=== PATIENT | female | born 1955 | race Caucasian/White ===

== ENCOUNTER → 2016-10-13 | Outpatient (CLI) | payer OTHER ==
--- NOTE | 2016-10-13 13:37 | EST ---
DATE OF SERVICE: 10/13/2016 TYPE OF REPORT: MOHAN EXERCISE STRESS TEST INDICATION: Murmur. BASELINE HEART RATE: 63 BASELINE BLOOD PRESSURE: 123/85 MAXIMUM HEART RATE: 143 MAXIMUM BLOOD PRESSURE: 188/58 85% MPHR: 136 100% MPHR: 160 METS: 7.3 MAXIMUM STAGE REACHED: II TOTAL EXERCISE TIME: 6:00 Baseline EKG revealed sinus mechanism, isolated PVC's. Patient walked for 6 minutes, achieved a maximum heart rate of 143 beats per minute, developed fatigue and shortness of breath and, therefore, stress test was stopped. Her heart rate was more than 85% of predicted maximum. There was a slot of artifact on this EKG. However, there is no evidence of any ST-segment changes to indicate ischemia. Patient did not have any angina. FINAL IMPRESSION: 1. Limited exercise capacity with a negative stress test by EKG criteria. 2. There is a lot of baseline artifact on the EKG. 3. There was no angina or any significant arrhythmia. YASIR
--- NOTE | 2016-10-14 11:02 | ECHOF ---
Referral Reason:I49.3 ventricular premature depolarizastion MEASUREMENTS -------- HEIGHT: 165.1 cm WEIGHT: 111.6 kg BP: IVSd: 1.3 cm (0.6 - 1.1) LVIDd: 3.9 cm (3.9 - 5.3) LVPWd: 1.4 cm (0.6 - 1.1) IVSs: 1.5 cm LVIDs: 3.3 cm LVPWs: 1.3 cm LA Diam: 4.1 cm (2.7 - 3.8) LAESV Index (A-L): 24.23 ml/m Ao Diam: 3.2 cm (2.0 - 3.7) AV Cusp: 2.1 cm (1.5 - 2.6) LA Diam: 5.5 cm (2.7 - 3.8) MV EXCURSION: 12.885 mm (> 18.000) MV EF SLOPE: 48 mm/s (70 - 150) EPSS: 1.1 cm MV E Wilber: 0.52 m/s MV DecT: 294 ms MV A Wilber: 0.85 m/s MV E/A Ratio: 0.61 RAP: 5.00 mmHg RVSP: 11.51 mmHg FINDINGS -------- Sinus rhythm. This was a technically good study. Morbid Obesity There is mild concentric left ventricular hypertrophy. Overall left ventricular systolic function is normal with, an EF between 55 - 60 %. The right ventricle is normal in size. Normal LA size by volume 22+/-6 ml/m2. The right atrial size is normal. The aortic valve is trileaflet, and appears structurally normal. No aortic stenosis or regurgitation. Mild mitral regurgitation is present. Mild tricuspid regurgitation present. There is no evidence of pulmonary hypertension. The right ventricular systolic pressure, as measured by Doppler, is 11.51mmHg. There is no pulmonic regurgitation present. The aortic root size is normal. Echo free space may represent effusion or a pericardial fat pad. CONCLUSIONS -------- 1. There is mild concentric left ventricular hypertrophy. 2. Overall left ventricular systolic function is normal with, an EF between 55 - 60 %. 3. Mild mitral regurgitation is present. 4. Mild tricuspid regurgitation present. 5. There is no evidence of pulmonary hypertension. 6. The right ventricular systolic pressure, as measured by Doppler, is 11.51mmHg. [employer] CASH CLERK: Tash Tyler RDCS
== END | disposition home or self-care (01) ==
LOC: RADNMMAIN 10:47
PROVIDERS: ATTEND Internal Medicine
DX: I49.3 Ventricular premature depolarization (principal)
CPT/HCPCS: 93017; 93306

== ENCOUNTER → 2016-10-13 | Outpatient (CLI) | payer OTHER ==
--- NOTE | 2016-10-14 12:22 | MM ---
Reason for exam: screening (asymptomatic). Last mammogram was performed 1 year and 6 months ago. History: Patient is postmenopausal. Physical Findings: A clinical breast exam by your physician is recommended on an annual basis and results should be correlated with mammographic findings. MG 3D Screening Mammo W/Cad Bilateral CC and MLO view(s) were taken. XCCL view(s) were taken of the left breast. Prior study comparison: April 23, 2015, bilateral MG 3d screening mammo w/cad. January 01, 2014, bilateral MG screening mammo w CAD. December 29, 2012, mammogram, performed at [facility]. The breast tissue is almost entirely fat. Benign calcifications bilaterally. No significant changes when compared with prior studies. ASSESSMENT: Benign, BI-RAD 2 RECOMMENDATION: Routine screening mammogram of both breasts in 1 year.
== END | disposition home or self-care (01) ==
LOC: RADMAMWWP 10:16
PROVIDERS: ATTEND Internal Medicine
DX: Z12.31 Encounter for screening mammogram for malignant neoplasm of breast (principal)
CPT/HCPCS: 77063; G0202; 93017; 93306

== ENCOUNTER → 2019-04-07 | Outpatient (CLI) | payer OTHER ==
[2019-04-07 14:36] VITALS: BP 151/79; PULSE 62; RESP 18; TEMP 98.6
--- NOTE | 2019-04-07 15:00 | P.GSHP ---
History of Present Illness H&P Date: 04/07/19 Chief Complaint: abnormal left breast ultrasound Glaina is a 63-year-old white female who presents for breast evaluation. She was seen in consultation for Dr. José Boogie related to mammographic abnormality in the right breast. She underwent bilateral mammogram on . This revealed an area of concern in the right breast for which ultrasound was recommended. It was a 4 mm mass. The patient had an ultrasound performed which revealed a 0.3 x 0.4 cm mass for which ultrasound-guided core biopsy was recommended. Caring does not feel any new lumps masses or nodules in her breast. She is not complaining of any nipple discharge or changes. No history of recent trauma or infection in the breast. She is not complaining of pain in her breast. Caffeine: 5 cups of tea/day nicotine: none chocolate: none Family History: none Hormonal History: menarche: 12 G0 menopause: 53 BCP: none hormones: none Surgical history: 1. bone spurs bilateral heels 2. bilateral; carpel tunnel 3. 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 85 pounds Medical history: Negative Social history: Smoke: Negative alcohol: Negative Drugs: Negative - Constitutional Constitutional: Denies chills, Denies fever - EENT Eyes: denies blurred vision, denies pain Ears: deny: decreased hearing, tinnitus Ears, nose, mouth and throat: Denies headache, Denies sore throat - Breasts Breasts: bilateral: as per HPI - Cardiovascular Cardiovascular: Denies chest pain, Denies shortness of breath - Respiratory Respiratory: Denies cough, Denies 7 - Gastrointestinal Gastrointestinal: Denies abdominal pain, Denies diarrhea, Denies nausea, Denies vomiting - Genitourinary (Female) Genitourinary: Denies dysuria, Denies hematuria - Menstruation Menstruation: Reports postmenopausal - Musculoskeletal Musculoskeletal: Denies myalgias - Integumentary Integumentary: Denies pruritus, Denies rash - Neurological Neurological: Denies numbness, Denies weakness - Psychiatric Psychiatric: Denies anxiety, Denies depression - Endocrine Endocrine: Denies fatigue, Denies weight change - Hematologic/Lymphatic Comment: none - Allergic/Immunologic Allergic/Immunologic: Reports as per HPI Past Medical History History of Any Multi-Drug Resistant Organisms: None Reported Smoking Status: Never smoker Medications and Allergies Home Medications Medication Instructions Recorded Confirmed Type Furosemide [Lasix] 40 mg PO DAILY 04/04/19 04/07/19 History Sertraline [Zoloft] 50 mg PO DAILY 04/04/19 04/07/19 History Allergies Allergy/AdvReac Type Severity Reaction Status Date / Time cefuroxime [From Ceftin] Allergy Unknown Verified 04/07/19 14:36 penicillin V [From Pen-Vee K] Allergy Unknown Verified 04/07/19 14:36 Surgical - Exam Vital Signs Temp Pulse Resp BP Pulse Ox 98.6 F 62 18 151/79 96 04/07/19 14:33 04/07/19 14:33 04/07/19 14:33 04/07/19 14:33 04/07/19 14:33 BMI 37.6 - General obese - Eyes normal ocular movement - ENT normal pinna, no hearing loss, no congestion - Neck no masses, trachea midline, no lymphadectomy - Respiratory normal expansion, normal respiratory effort, clear to percussion, clear to auscultation - Cardiovascular Rhythm: regular Heart Sounds: normal: S1, S2 - Abdomen Abdomen: soft, non tender, no guarding, no rigid, no rebound - Integumentary normal turgor - Neurologic no disoriented, no combative - Musculoskeletal normal gait, normal posture - Psychiatric oriented to time, oriented to person, oriented to place, speech is normal, memory intact breast exam: inspection: BRA 50C ptosis grade 3 no skin changes of concern, no nipple inversion Palpation: right breast: Multi-positional exam no dominant masses or nodules of concern, fibrocystic changes Right axilla: No adenopathy of concern in left breast: Multi-positional exam no dominant masses or nodules of concern, fibrocystic changes Left axilla: No adenopathy of concern Results mammogram and ultrasound results reviewed Assessment and Plan Assessment: Impression: 1. Mammogram and ultrasound area of concern right breast 2. Fibrocystic breast changes 3. BMI 37.6 Plan: 1. ultrasound core biopsy of the right breast 2. follow up after core biopsy CC: Dr. Flood encounter 25 minutes, > 50% of time in planning and counselling Time with Patient: Less than 30
== END | disposition home or self-care (01) ==
LOC: WWCWWP 14:06
PROVIDERS: ATTEND Surgery
DX: Z53.9 Procedure and treatment not carried out, unspecified reason (principal)

== ENCOUNTER → 2019-04-11 | Day surgery (SDC) | payer OTHER ==
[2019-04-11 11:53] VITALS: RESP 16
[2019-04-11 13:02] VITALS: BP 133/87; PULSE 57; TEMP 98.1
--- NOTE | 2019-04-11 15:19 | USB ---
EXAMINATION TYPE: US biopsy breast VAD RT, Postbiopsy MG diagnostic mammo RT wo CAD DATE OF EXAM: 04/11/2019 CLINICAL HISTORY: 63-year-old female R92.8 ABN MAMMO. TECHNIQUE: Ultrasound guided core biopsy of 11:00 right breast. COMPARISON: Mammogram 02/07/2019 FINDINGS: The procedure of ultrasound guided core biopsy was explained to the patient. Benefits, alternatives, and risks were discussed. An informed consent was then obtained. The patient was placed in supine positioning for imaging and for the procedure. The overlying skin was prepped and draped in usual sterile fashion. Lidocaine was used as anesthetic into the skin and subcutaneous tissue up to area of concern in the anterior right breast. Under ultrasound guidance, a 13-gauge mammotome Elite biopsy gun device was used to obtain 4 core samples. Following this, a coil clip was left at the site of biopsy. The patient tolerated the procedure well without any immediate complication. The patient was kept in the radiology department for short stay after the procedure and then discharged home in stable condition. Postbiopsy mammogram shows clip at the site of focal asymmetry. Some residual density remains. IMPRESSION: Successful, uncomplicated ultrasound guided core biopsy of a possible cystic lesion in the 11:00 anterior right breast, full pathology results to follow. Six-month follow-up post procedure mammogram if benign results. Pathology Results: Benign RIGHT BREAST AT 11:00 POSITION, BIOPSIES: Benign adipose tissue fragments and capillary sized blood vessels. Negative for breast parenchyma. Recommendation Follow up mammogram of the right breast in 6 months. YASIR
== END ==
LOC: RADUSWWP 11:03
PROVIDERS: ATTEND Surgery
DX: R92.8 Other abnormal and inconclusive findings on diagnostic imaging of breast (principal)
CPT/HCPCS: 88305; 77065; 19083; A4648; J2001

== ENCOUNTER → 2019-10-23 | Outpatient (CLI) | payer OTHER ==
--- NOTE | 2019-10-23 13:18 | MM ---
Reason for exam: follow-up at short interval from prior study. Last mammogram was performed 6 months ago. History: Patient is postmenopausal. Benign US biopsy breast VAD RT of the right breast, April 11, 2019. Physical Findings: Nurse did not find any significant physical abnormalities on exam. MG Diagnostic Mammo RT w CAD CC and MLO view(s) were taken of the right breast. Prior study comparison: April 11, 2019, right breast MG diagnostic mammo RT wo CAD. October 13, 2016, bilateral MG 3d screening mammo w/cad. There are scattered fibroglandular densities. Previous mammotome biopsy in the right breast. There is chronic nodularity in the right breast. No significant new findings when compared with previous films. These results were verbally communicated with the patient and result sheet given to the patient on 10/23/19. ASSESSMENT: Incomplete: need additional imaging evaluation, BI-RAD 0 RECOMMENDATION: Ultrasound of both breasts. (right post procedure follow up, left axilla at pain)
--- NOTE | 2019-10-23 13:20 | USB ---
Reason for exam: additional evaluation requested from abnormal screening. History: Patient is postmenopausal. Benign US biopsy breast VAD RT of the right breast, April 11, 2019. US Breast Limited BILAT Right limited breast ultrasound including focal area of concern, retroareolar and axilla demonstrates a 0.3 x 0.3 x 0.2cm hypoechoic at 11 o'clock, clip adjacent, likely from slight migration. Left limited breast ultrasound including focal area of concern, retroareolar and axilla demonstrates no lymphadeopathy or other discrete abnormality. Right scanned 9-12 o'clock, left axilla. These results were verbally communicated with the patient and result sheet given to the patient on 10/23/19. ASSESSMENT: Benign, BI-RAD 2 RECOMMENDATION: Routine screening mammogram of both breasts in 6 months. Back on schedule.
== END | disposition home or self-care (01) ==
LOC: RADMAMWWP 09:25
PROVIDERS: ATTEND Surgery
DX: R92.8 Other abnormal and inconclusive findings on diagnostic imaging of breast (principal)
CPT/HCPCS: 77065

== ENCOUNTER → 2020-02-20 | Outpatient (CLI) | payer OTHER ==
[2020-02-20 12:30] LABS: Basophils # (A) 0.1 k/uL (0-0.2); Basophils % (A) 1 %; Eosinophils # (A) 0.1 k/uL (0-0.7); Eosinophils % (A) 2 %; HCT 47.1 % (34.0-46.0); HGB 15.1 gm/dL (11.4-16.0); Lymphocytes # (A) 1.8 k/uL (1.0-4.8); Lymphocytes % (A) 30 %; MCH 28.9 pg (25.0-35.0); MCHC 32.1 g/dL (31.0-37.0); MCV 90.1 fL (80.0-100.0); Monocytes # (A) 0.3 k/uL (0-1.0); Monocytes % (A) 5 %; Neutrophils # (A) 3.7 k/uL (1.3-7.7); Neutrophils % (A) 60 %; Platelet Count 269 k/uL (150-450); RBC 5.22 m/uL (3.80-5.40); RDW 13.1 % (11.5-15.5); WBC 6.1 k/uL (3.8-10.6)
[2020-02-20 19:59] LABS: African American GFR (CKD) 112.4 (60.0-200.0); Albumin 4.2 g/dL (3.80-4.90); Anion Gap 8.6 mmol/L (4.00-12.00); BUN/Creat Ratio 21.67 Ratio (12.00-20.00); Calcium 9.2 mg/dL (8.7-10.3); Carbon Dioxide 27.4 mmol/L (21.6-31.8); Chol/HDL Ratio 3.78; Globulin 2.1 g/dL (1.6-3.3); LDL Cholesterol,Calculated 142.4 mg/dL (0.0-131.0); Potassium 4.3 mmol/L (3.5-5.5); Total Bilirubin 0.5 mg/dL (0.2-1.2); Total Protein 6.3 g/dL (6.2-8.2); VLDL Calculation 24.6 mg/dL (5.00-40.00)
== END | disposition home or self-care (01) ==
LOC: LABWHC1 10:23
PROVIDERS: ATTEND Internal Medicine
DX: Z13.6 Encounter for screening for cardiovascular disorders (principal); E55.9 Vitamin D deficiency, unspecified; R53.83 Other fatigue
CPT/HCPCS: 36415; 80053; 80061; 82306; 82607; 84443; 85025

== ENCOUNTER → 2021-01-31 | Outpatient (CLI) | payer OTHER ==
--- NOTE | 2021-02-03 09:53 | MM ---
Reason for exam: additional evaluation requested from prior study. Last mammogram was performed 1 year and 3 months ago. History: Patient is postmenopausal. Benign US biopsy breast VAD RT of the right breast, April 11, 2019. Physical Findings: Nurse did not find any significant physical abnormalities on exam. MG Diagnostic Mammo w CAD OSCAR Bilateral CC and MLO view(s) were taken. XCCL view(s) were taken of the right breast. Prior study comparison: October 13, 2016, bilateral MG 3d screening mammo w/cad. There are scattered fibroglandular densities. There are benign appearing round calcifications bilaterally. Previous mammotome biopsy in the right breast. There is chronic nodularity in the right breast. There is no discrete abnormality. These results were verbally communicated with the patient and result sheet given to the patient on 01/31/21. ASSESSMENT: Benign, BI-RAD 2 RECOMMENDATION: Routine screening mammogram of both breasts in 1 year.
== END | disposition home or self-care (01) ==
LOC: RADMAMWWP 10:46
PROVIDERS: ATTEND Family Medicine
DX: R92.1 Mammographic calcification found on diagnostic imaging of breast (principal); Z78.0 Asymptomatic menopausal state
CPT/HCPCS: 77066